=== PATIENT | female | born 1935 | race Caucasian/White ===

== ENCOUNTER → 2016-07-26 | Outpatient (CLI) | payer MEDICARE, MEDICAID | LOC: NWCC 09:19 | PROVIDERS: ATTEND Internal Medicine | DX: L97.822 Non-pressure chronic ulcer of other part of left lower leg with fat layer exposed (principal); S80.812A Abrasion, left lower leg, initial encounter; B96.89 Other specified bacterial agents as the cause of diseases classified elsewhere; Z89.512 Acquired absence of left leg below knee; L53.9 Erythematous condition, unspecified | CPT/HCPCS: 11042; 87070; 87075; 87076; 87077; 87147; 87181; 87186; 87205; A6209 ==

== ENCOUNTER → 2016-08-02 | Outpatient (CLI) | payer MEDICARE, MEDICAID ==
[~2016-08-02] MED LIST: CALMOSEPTINE OINTMENT 3.5 G PACKET TOP ONE; SALINE FLUSH 10ml SYRINGE IVF ONE
== END ==
LOC: NWCC 09:21
PROVIDERS: ATTEND Internal Medicine
DX: T87.9 Unspecified complications of amputation stump (principal); Y83.8 Other surgical procedures as the cause of abnormal reaction of the patient, or of later complication, without mention of misadventure at the time of the procedure; S80.812A Abrasion, left lower leg, initial encounter
CPT/HCPCS: 11042; A6209; A6210; A9270

== ENCOUNTER → 2016-08-16 | Outpatient (CLI) | payer MEDICARE, MEDICAID | LOC: NWCC 09:18 | PROVIDERS: ATTEND Internal Medicine | DX: L97.822 Non-pressure chronic ulcer of other part of left lower leg with fat layer exposed (principal); S80.812A Abrasion, left lower leg, initial encounter; Z89.512 Acquired absence of left leg below knee; L53.9 Erythematous condition, unspecified | CPT/HCPCS: A6209; G0463 ==